=== PATIENT | female | born 1990 | race African-American/Black ===

== ENCOUNTER 2023-11-13 09:32 | Emergency (ER) | payer MEDICAID ==
[~2023-11-13] VITALS: Ht 170.2 cm; Wt 102.1 kg
[2023-11-13 09:43] VITALS: O2SAT 98
[2023-11-13 10:16] LABS: BASOPHILS % 0.4 % (0.0-2.0); DIFFERENTIAL COMMENT 0; EOSINOPHILS % 3.5 % (0.0-5.0); HEMATOCRIT. 38.4 % (36.0-48.0); HEMOGLOBIN. 12.5 g/dL (12.0-16.0); LYMPHOCYTES % 28.2 % (20.0-50.0); MEAN CORPUSCULAR HGB CONC 32.5 g/dL (31.0-37.0); MEAN CORPUSCULAR VOLUME 79.8 fL (81.0-99.0); MEAN PLATELET VOLUME 8.4 fl (7.4-10.4); MONOCYTES % 10.5 % (2.0-8.0); NEUTROPHILS % 57.4 % (40.0-76.0); PLATELET 276 x1000/uL (130-400); RED BLOOD CELL COUNT 4.82 mill/uL (4.2-5.4); RED CELL DISTRIBUTION WIDTH 16.2 % (11.6-14.6); WHITE BLOOD COUNT 4.9 x1000/uL (4.5-11.0)
[2023-11-13 10:19] LABS: CARBON DIOXIDE 27 mEq/L (21-32); CHLORIDE 106 mEq/L (98-107); POTASSIUM 3.7 mEq/L (3.5-5.1); SODIUM 139 mEq/L (136-145)
[2023-11-13 10:20] LABS: CALCIUM 9.8 mg/dL (8.7-10.4)
[2023-11-13 10:24] LABS: CREATININE 0.8 mg/dL (0.6-1.0)
[2023-11-13 10:25] LABS: GLUCOSE 100 mg/dL (70-105); UREA NITROGEN BLOOD 10 mg/dL (9-23)
[2023-11-13 10:28] LABS: TROPONIN I HIGH SENSITIVITY < 4 ng/L (3.0-34)
[2023-11-13] MEDS ORDERED: GUAI-450 MT (12:22)
[2023-11-13] MEDS ORDERED: ALBU18HF2 IH ×2 (12:22→12:53)
[2023-11-13] MEDS ORDERED: P50 MT (12:22)
[2023-11-13] MEDS ORDERED: AMOX-494 MT (12:25)
[2023-11-13 13:16] VITALS: BP 141/85; PULSE 96; RESP 18; TEMP 36.89184; O2SAT 98
== END 2023-11-13 13:17 | disposition home or self-care (01) ==
LOC: ER 09:32
DX: U07.1 COVID-19 (principal); J12.82 Pneumonia due to coronavirus disease 2019; Z79.899 Other long term (current) drug therapy
CPT/HCPCS: 36415; 71045; 80048; 84484; 85025; 87426; 93005; 99285